=== PATIENT | male | born 1950 | race Caucasian/White ===

== ENCOUNTER → 2018-01-02 | Outpatient (CLI) | payer OTHER, MEDICARE ==
[~2018-01-02] MED LIST: ASPIR 8181 MG PO; CALCIUM CARBON500 MG PO; FENOFIBRATE145 MG PO; FISH OIL300 MG PO; GARLIC100 MG PO; LISINOPRIL10 MG PO; MULTI-VITAMIN1 EACH PO; POTASSIUM CHLO10 ME1 PO; Z.0.CARVEDILOL3.125; Z.0.CELEBREX200 MG; Z.0.ZANAFLEX4 M1; [UNRECOGNIZED DRUG - OTHER]
--- NOTE | 2018-01-02 15:54 | Diagnostic Imaging Report ---
PROCEDURE:X-RAY ABDOMEN - KUB COMPARISON:KUB dated 06/05/17 INDICATIONS:FOLLOW UP BILATERAL KIDNEY STONES FINDINGS: There is a non-obstructed bowel-gas pattern. There are no calcifications projected over the renal shadows, expected course of the ureters or bladder. There are no acute osseous abnormalities. The lung bases are clear. CONCLUSION: Nonobstructive bowel gas pattern. No definite evidence of nephrolithiasis. Renal stone protocol CT is more sensitive for evaluation of renal stones. Dictated by: Milind Leon M.D. on 01/02/2018 at 15:57 Electronically approved by: Milind Leon M.D. on 01/02/2018 at 15:57
== END ==
LOC: RAD 15:16
PROVIDERS: ATTEND Urology
DX: N20.0 Calculus of kidney (principal)
CPT/HCPCS: 74018

== ENCOUNTER → 2018-06-26 | Outpatient (CLI) | payer OTHER, MEDICARE ==
[~2018-06-26] MED LIST changes: +IOPAMIDOL 370 MG/ML 200 ML INFUS..BTL INJ ONE; +SODIUM CHLORIDE 0.9% 250ML 250 ML ONE
[2018-06-26 16:38] LABS: BLOOD UREA NITROGEN 11 mg/dL (7-26); BUN/CREATININE RATIO 12 (6-25); CREATININE, SERUM 0.91 mg/dL (0.72-1.25); EST GLOMERULAR FILTRATION RATE > 60 ML/MIN (60-)
--- NOTE | 2018-06-26 19:13 | Diagnostic Imaging Report ---
EXAM: CT Abdomen and Pelvis WITHOUT and WITH contrast INDICATION: Gross hematuria. Renal stones. COMPARISON: CT scan June 14, 2014 TECHNIQUE: Abdomen and pelvis were scanned utilizing a multidetector helical scanner from the lung base to the pubic symphysis before and after administration of IV contrast. Coronal and sagittal reformations were obtained. Routine protocol was performed. Scan was performed when during portal venous phase. 3-D reformatted images were obtained of the kidneys, ureters and urinary bladder IV CONTRAST: 100 mL of Isovue-300 ORAL CONTRAST: Water RADIATION DOSE: Total DLP: 1019.21 mGy*cm Estimated effective dose: (DLP x 0.015 x size factor) mSv All CT scans are performed using radiation dose reduction techniques. Technical factors are evaluated and adjusted to ensure appropriate moderation of exposure. Automated dose management technology is applied to adjust the radiation dose to minimize exposure while achieving a diagnostic-quality image. COMPLICATIONS: None FINDINGS: LINES and TUBES: None. LOWER THORAX: Unremarkable HEPATOBILIARY: No focal hepatic lesions. No biliary ductal dilation. GALLBLADDER: No radio-opaque stones or sludge. No wall thickening. SPLEEN: No splenomegaly. PANCREAS: No focal masses or ductal dilatation. ADRENALS: No adrenal nodules KIDNEYS/URETERS: Kidneys enhance symmetrically. No hydronephrosis. No cystic or solid mass lesions. 1.0 cm partially obstructing stone in the proximal right ureter. Several punctate stones in the right kidney. Perinephric fat stranding could be due to chronic medical renal disease. Simple appearing cyst in the anterior left kidney. GI TRACT: No abnormal distention, wall thickening, or evidence of bowel obstruction. Appendix is normal. Scattered diverticulosis without evidence of diverticulitis. PELVIC ORGANS/BLADDER: Unremarkable. LYMPH NODES: No lymphadenopathy. VESSELS: Scattered vascular calcification. PERITONEUM / RETROPERITONEUM: No free air or fluid. BONES: Unremarkable. SOFT TISSUES: Unremarkable. IMPRESSION: 1. 1.0 cm partially obstructing stone in the proximal right ureter. Several punctate stones in the right kidney. Perinephric fat stranding could be due to chronic medical renal disease. Simple appearing cyst in the anterior left kidney. Scattered diverticulosis without evidence of diverticulitis. Signed by: Dr. Latrell Hart M.D. on 06/26/2018 7:10 PM
== END ==
LOC: CT 15:17
PROVIDERS: ATTEND Urology
DX: R31.0 Gross hematuria (principal)
CPT/HCPCS: 36415; 74178; 82565; 84520; J7050; Q9967